=== PATIENT | male | born 1965 | race Caucasian/White ===

== ENCOUNTER 2017-03-20 11:05 | Emergency (ER) ==
[2017-03-20 11:17] VITALS: BP 162/108; TEMP 98.5; BMI 23.3
[2017-03-20] MEDS ORDERED: TORADOL IM STA (11:17)
--- NOTE | 2017-03-20 11:20 | ED.PDOC ---
General ED Provider: Dr. JULI PERDOMO Chief Complaint: Shoulder Pain/Injury Stated Complaint: Was working with sludge hammer yesterday, today he is hurting to move and raise, has h/o rotatort cuff surgery in the past. Time Seen by Physician: 11:17 Mode of Arrival: Walk-In Information Source: Patient Nursing and Triage Documentation Reviewed and Agree: Yes Musculoskeletal Complaint Exam - Shoulder Pain Complaint/Exam Mechanism of Injury: Reports: No known trauma Symptoms Are: Still present Timing: Constant Initial Severity: Moderate Current Severity: Moderate Location: Reports: Discrete Character: Reports: Aching Alleviating: Reports: Rest Aggravating: Reports: Movement, Lifting, Flexion, Extension Associated Signs and Symptoms: Denies: Swelling, Redness, Bruising, Fever, Weakness, Numbness, Tingling Related History: Reports: Similar episode Non-Orthopedic Risk Factors: Reports: None DVT Risk Factors: Reports: None Septic Arthritis Risk Factors: Reports: None Related Surgical History: Reports: None Tenderness: Present: Rotator cuff muscles Limited Range of Motion: Present: Abduction, Adduction, Flexion, Extension Differential Diagnoses: Rotator Cuff Injury, Sprain Review of Systems - Review Of Systems Constitutional: Reports: No symptoms Eyes: Reports: No symptoms Ears, Nose, Mouth, Throat: Reports: No symptoms Respiratory: Reports: No symptoms Cardiac: Reports: No symptoms GI: Reports: No symptoms : Reports: No symptoms Musculoskeletal: Reports: Joint pain, Joint swelling Skin: Reports: No symptoms Neurological: Reports: No symptoms Endocrine: Reports: No symptoms Hematologic/Lymphatic: Reports: No symptoms All Other Systems: Reviewed and Negative Past Medical History - Past Medical History Previously Healthy: Yes Endocrine: Reports: None Cardiovascular: Reports: None Respiratory: Reports: None Hematological: Reports: None Gastrointestinal: Reports: None Genitourinary: Reports: None Neuro/Psych: Reports: None Musculoskeletal: Reports: Arthritis, Back Pain Cancer: Reports: None - Surgical History General Surgical History: Reports: Orthopedic (rt rotatort cuff.) - Family History Family History: Reports: None - Social History Smoking Status: Current every day smoker Smoking Cessation Counseling Time: > 3 min - 10 min Hx Substance Use: No Alcohol Screening: None Physical Exam - Physical Exam Appearance: Well-appearing Pain Distress: Moderate Eyes: LISA, EOMI, Conjunctiva clear ENT: Ears normal, Nose normal, Oropharynx normal Respiratory: Airway patent, Breath sounds clear, Breath sounds equal, Respirations nonlabored Cardiovascular: RRR, Pulses normal, No rub, No murmur GI/: Soft, Nontender, No masses, Bowel sounds normal, No Organomegaly Musculoskeletal: Limited ROM, Limited strength Skin: Warm, Dry, Normal color Neurological: Sensation intact, Motor intact, Reflexes intact, Cranial nerves intact, Alert, Oriented Psychiatric: Affect appropriate, Mood appropriate Critical Care Note - Critical Care Note Total Time (mins): 0 Course - Course Orders, Labs, Meds: Orders Category Date Time Status Ketorolac Tromethamine [Toradol] MEDS 03/20/17 11:17 Stat 30 mg IM ONCE STA Vital Signs: Temp Pulse Resp BP Pulse Ox 03/20/17 11:06 98.5 F 95 H 20 162/108 H 98 Departure - Departure Time of Disposition: 11:23 Disposition: HOME SELF-CARE Discharge Problem: Rotator cuff (capsule) sprain Qualifiers: Encounter type: initial encounter Laterality: right Qualifier Code: (S43.421A) Sprain of right rotator cuff capsule, initial encounter Instructions: Rotator Cuff Tendinitis (ED) Condition: Stable Pt referred to PMD for follow-up: Yes Additional Instructions: rest hot pack needs MRI, patient is from [facility], wants to do it there when he return. Prescriptions: Prednisone 10 mg PO BIDWM #14 tablet Tramadol HCl 50 mg PO BID #14 tablet Allergies/Adverse Reactions: Allergies hydrocodone Adverse Reaction (Verified 03/20/17 11:11) CAUSES UPSET STOMACH Home Medications: Ambulatory Orders Prednisone 10 mg PO BIDWM #14 tablet 03/20/17 Tramadol HCl 50 mg PO BID #14 tablet 03/20/17 Disposition Discussed With: Patient
== END 2017-03-20 11:38 | disposition home or self-care (01) ==
LOC: ED 11:05
DX: S43.421A Sprain of right rotator cuff capsule, initial encounter (principal); F17.210 Nicotine dependence, cigarettes, uncomplicated; X50.1XXA Overexertion from prolonged static or awkward postures, initial encounter
CPT/HCPCS: 96372; 99283